=== PATIENT | female | born 1980 | race Two or more races ===

== ENCOUNTER → 2021-01-06 | Outpatient (CLI) | payer BC ==
[2014-07-12 11:45] VITALS: BP 111/64
[~2021-01-06] MED LIST: ACET1TAB33 PO; BIRTH CONTROL; CLOT15CR5 TP; HYDR-3423 PO; LISI-517 PO; MAGN296S68 PO; METF500T16 PO; NA P133E2 RC; NAPR500T8 PO; PHEN15CA2 PO; TOPI25TA52 PO
== END ==
LOC: LAB 10:15
PROVIDERS: ATTEND Podiatrist
DX: Z01.812 Encounter for preprocedural laboratory examination (principal); Z20.822 Contact with and (suspected) exposure to COVID-19
CPT/HCPCS: U0003; U0005

== ENCOUNTER 2021-01-08 09:50 | Day surgery (SDC) | payer BC ==
[~2021-01-08] VITALS: Ht 162.6 cm; Wt 81.0 kg
[~2021-01-08 09:50] MED LIST changes: -ACET1TAB33 PO; +HYDROmorphone 2 MG/ML VIAL IVP PRN; +IV RINGERS,LACTATED 1000ML 1,000 ML IV SCH; +MORPHINE SULFATE 2 MG/ML INJ. IVP PRN; +PROCHLORPERAZINE 10 MG/2 ML VIAL. IVP PRN; +fentaNYL PF VIAL 100 MCG/2 ML VIAL IVP PRN
[2021-01-08 10:30] VITALS: BP 156/86
--- NOTE | 2021-01-08 10:30 | PDOC1 ---
History and Physical Date of Admission Date of Admission DATE: 01/08/21 TIME: 10:29 Identification/Chief Complaint Chief Complaint Left 3rd toe mass Source Source: Chart review, Patient History of Present Illness History of Present Illness Ms Calero is a 40yo F w/ PMHx DM2 with neuropathy, HTN, chronic back pain who comes to [facility] for left 3rd digit amputation for chronic pain and bone mass. Has had toe problems at this location over a year. 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 She uses topical antifungal cream and has onychomycosis of bilateral great toes. Takes metformin for DM2 and lisinopril for HTN, sees Dr. Yoon for primary care and has excellent diabetic and BP control. She has only had 1 prior surgery, abodominal hysterectomy with salpingectomy in 2013 with no adverse effects, no prior problems with anesthesia, no blood transfusions. No recent travel or sick contacts. Rapid COVID 19 negative. Past Medical History Cardiovascular: HTN Endocrine: Diabetes Past Surgical History Past Surgical History: Hysterectomy Family History Family History Father diagnosed with diabetes. Mother diagnosed with hypertension. Maternal grandmother cancer and diagnosed with diabetes and hypertension. Three brothers and one sister, two healthy. Two sons and two daughters all healthy. Family History: Diabetes (Father), Hypertension (Mother) Family History: Grandparents (Maternal grandmother - cancer, DM2, HTN), Other (3 brothers, 1 sister. 2 sons, 2 daughters) Social History Smoke: No ALCOHOL: none Drugs: None Current Medications Current Medications Current Medications Fentanyl Citrate (Fentanyl 2ml Vial) 25 mcg PRN Q5MIN PRN IVP MILD PAIN 1-3; Start 01/08/21 at 06:00; Stop 01/09/21 at 05:59 Fentanyl Citrate (Fentanyl 2ml Vial) 50 mcg PRN Q5MIN PRN IVP MODERATE PAIN 4- 6; Start 01/08/21 at 06:00; Stop 01/09/21 at 05:59 Morphine Sulfate (Morphine Sulfate) 1 mg PRN Q10MIN PRN IVP SEVERE PAIN 7-10; Start 01/08/21 at 06:00; Stop 01/09/21 at 05:59 Ringer's Solution 1,000 ml @ 30 mls/hr Q24H IV ; Start 01/08/21 at 06:00; Stop 01/08/21 at 17:59 Hydromorphone HCl (Dilaudid) 0.5 mg PRN Q10MIN PRN IVP SEVERE PAIN 7-10, 2nd CHOICE; Start 01/08/21 at 06:00; Stop 01/09/21 at 05:59 Prochlorperazine Edisylate (Compazine) 5 mg PACU PRN PRN IVP NAUSEA, MRX1; St art 01/08/21 at 06:00; Stop 01/09/21 at 05:59 Active Scripts Active Reported Phentermine Hcl 15 Mg Capsule 15 Mg PO DAILY Topamax (Topiramate) 25 Mg Tablet 25 Mg PO BID Clotrimazole-Betamethasone Crm (Clotrimazole/Betamethasone Dip) 15 Gm Cream..g. 15 Gm TP BID Lisinopril 5 Mg Tablet 5 Mg PO DAILY Metformin Hcl 500 Mg Tablet 500 Mg PO DAILYAC Allergies Allergies: Coded Allergies: No Known Drug Allergies (Unverified , 01/02/21) ROS General: No: Chills, Night Sweats, Fatigue, Malaise, Appetite, Other PSYCHOLOGICAL ROS: No: Anxiety, Behavioral Disorder, Concentration difficultie, Decreased libido, Depression, Disorientation, Hallucinations, Hostility, Irritablity, Memory difficulties, Mood Swings, Obsessive thoughts, Physical abuse, Sexual abuse, Sleep disturbances, Suicidal ideation, Other Eyes: No Blurry vision, No Decreased vision, No Double vision, No Dry eyes, No Excessive tearing, No Eye Pain, No Itchy Eyes, No Loss of vision, No Photophobia, No Scotomata, No Uses contacts, No Uses glasses, No Other HEENT: No: Heacaches, Visual Changes, Hearing change, Nasal congestion, Nasal discharge, Oral lesions, Sinus pain, Sore Throat, Epistaxis, Sneezing, Snoring, Tinnitus, Vertigo, Vocal changes, Other ALLERGY AND IMMUNOLOGY: No: Hives, Insect Bite Sensitivity, Itchy/Watery Eyes, Nasal Congestion, Post Nasal Drip, Seasonal Allergies, Other Hematological and Lymphatic: No: Bleeding Problems, Blood Clots, Blood Transfusions, Brusing, Night Sweats, Pallor, Swollen Lymph Nodes, Other ENDOCRINE: No: Breast Changes, Galactorrhea, Hair Pattern Changes, Hot Flashes, Malaise/lethargy, Mood Swings, Palpitations, Polydipsia/polyuria, Skin Changes, Temperature Intolerance, Unexpected Weight Changes, Other Breast: No New/Changing Breast Lumps, No Nipple changes, No Nipple discharge, No Other Respiratory: No: Cough, Hemoptysis, Orthopnea, Pleuritic Pain, Shortness of breath, SOB with excertion, Sputum Changes, Stridor, Tachypnea, Wheezing, Other Cardiovascular: No Chest Pain, No Palpitations, No Orthopnea, No Paroxysmal Noc. Dyspnea, No Edema, No Lt Headedness, No Other Gastrointestinal: No Nausea, No Vomiting, No Abdominal Pain, No Diarrhea, No Constipation, No Melena, No Hematochezia, No Other Genitourinary: No Dysuria, No Frequency, No Incontinence, No Hematuria, No Retention, No Discharge, No Urgency, No Pain, No Flank Pain, No Other, No , No , No , No , No , No , No Musculoskeletal: Yes Gait Disturbance, Yes Joint Pain; No Joint Stiffness, No Joint Swelling, No Muscle Pain, No Muscular Weakness, No Pain In:, No Swelling In:, No Other Neurological: No Behavorial Changes, No Bowel/Bladder ControlChng, No Confusion, No Dizziness, No Gait Disturbance, No Headaches, No Impaired Coord/balance, No Memory Loss, No Numbness/Tingling, No Seizures, No Speech Problems, No Tremors, No Visual Changes, No Weakness, No Other Skin: No Dry Skin, No Eczema, No Hair Changes, No Lumps, No Mole Changes, No Mottling, No Nail Changes, No Pruritus, No Rash, No Skin Lesion Changes, No Other, No Acne Physical Exam General: Alert, Oriented X3, Cooperative, No acute distress HEENT: Atraumatic, PERRLA, EOMI, Mucous membr. moist/pink Lungs: Clear to auscultation, Normal air movement Heart: S1S2, RRR, no thrills, no rubs, no gallops, no murmurs Breasts: Nipples normal Abdomen: Normal bowel sounds, Soft, No tenderness, No hepatosplenomegaly, No masses Rectal Exam: not examined Skin: No rashes, No breakdown, Other (bilateral great toe onychomycosis, left 3rd toe mass at DIP) Neuro: Normal gait, Normal speech, Strength at 5/5 X4 ext, Normal tone, Sensation intact, Cranial nerves 3-12 NL, Reflexes 2+ Psych/Mental Status: Mental status NL, Mood NL VTE Prophylaxis Ordered VTE Prophylaxis Devices: Yes VTE Pharmacological Prophylaxi: No Assessment/Plan Assessment/Plan A/P: Left 3rd toe mass - could be osteochondroma vs exostosis vs other deformity DM2 - A1c 6.8 1 month ago, takes metformin HTN - on lisinopril Onychomycosis - bilateral great toes Overweight - counseled on lifestyle modification FEN - NPO PPX - SCDs FULL CODE Dispo - no further testing prior to planned outpatient surgery, low risk for low risk surgery for questions Justifications for Admission Other Justification DINESH WILLIS MD Jan 08, 2021 10:30
[2021-01-08] MEDS ORDERED: PHENYLEPHRINE 10 MG/ML VIAL. ONE (10:35)
[2021-01-08] MEDS ORDERED: PROPOFOL 10 MG/ML (20ML) VIAL. IV ONE (10:35)
[2021-01-08] MEDS ORDERED: BUPIVACAINE MPF 0.5% 30 ML VIAL. ONE (10:36)
[2021-01-08] MEDS ORDERED: fentaNYL PF VIAL 100 MCG/2 ML VIAL ONE (10:36)
[2021-01-08] MEDS ORDERED: DEXAMETHASONE SOD PHOS 4 MG/ML VIAL ONE (10:36)
[2021-01-08] MEDS ORDERED: LIDOCAINE 1% Multi-Dose 20 ML VIAL. ONE (10:36)
[2021-01-08] MEDS ORDERED: ONDANSETRON PF 4 MG/2 ML VIAL. ONE (10:36)
[2021-01-08] MEDS ORDERED: LIDOCAINE 2% PF 5 ML VIAL. ONE (10:36)
[2021-01-08] MEDS ORDERED: POVIDONE-IODINE 10% TOPICAL OINTMENT 28GM TUBE. TP ONE (10:37)
[2021-01-08] MEDS ORDERED: MIDAZOLAM HCL/PF 2 MG/2 ML VIAL. ONE (10:39)
[2021-01-08] MEDS ORDERED: INSULIN LISPRO 100 UNIT/ML 3ML VIAL for OP,RR ONLY. SQ PRN (11:00)
[2021-01-08 11:42] LABS: CALCIUM 8.9 mg/dL (8.5-10.1); CREATININE 0.6 mg/dL (0.6-1.0); GFR 110.2; POTASSIUM 3.9 mmol/L (3.5-5.1)
[2021-01-08 11:45] LABS: BASO # 0.1 x10^3/uL (0.0-0.2); BASO % 1 % (0-3); EOS # 0.2 x10^3/uL (0.0-0.7); EOS % 3 % (0-3); HEMATOCRIT 38.7 % (36.0-47.0); HEMOGLOBIN 13.2 g/dL (12.0-15.5); LYMPH # 2.7 x10^3/uL (1.0-4.8); LYMPH % 41 % (24-48); MEAN CORPUSCULAR HEMOGLOBIN 29 pg (25-35); MEAN CORPUSCULAR HGB CONC 34 g/dL (31-37); MEAN CORPUSCULAR VOLUME 86 fL (79-100); MONO # 0.5 x10^3/uL (0.0-1.1); MONO % 8 % (0-9); NEUT # 3.1 x10^3/uL (1.8-7.7); NEUT % 47 % (31-73); PLATELET COUNT 354 x10^3/uL (140-400); RED BLOOD COUNT 4.51 x10^6/uL (3.50-5.40); RED CELL DISTRIBUTION WIDTH 13.4 % (11.5-14.5); WHITE BLOOD COUNT 6.6 x10^3/uL (4.0-11.0)
[2021-01-08 11:47] LABS: ALBUMIN 3.3 g/dL (3.4-5.0); ALBUMIN/GLOBULIN RATIO 0.9 (1.0-1.7); TOTAL BILIRUBIN 0.2 mg/dL (0.2-1.0); TOTAL PROTEIN 6.9 g/dL (6.4-8.2)
[2021-01-08 11:55] LABS: PROTHROMBIN TIME PATIENT 12.1 SEC (11.7-14.0)
--- NOTE | 2021-01-08 12:47 | DISCH ---
DISCHARGE INSTRUCTIONS Condition on Discharge Condition on Discharge: Stable Activity After Discharge Activity Instructions for Disc: Activity as tolerated, Other, see below (Mi nimal weight bearing in surgical shoe to the left foot till followup in clinic) Bathing Instructions: Shower-keep dressing dry Lifting Instructions after Dis: No heavy lifting, No pulling or pushing, Do not lift >10 pounds Weight Bearing Status after Di: Full weight bearing, Other, see below (Minimal heel weight bearing, left foot till follow-up in clinic.) Diet after Discharge Diet after Discharge: Diabetic No Calorie Level Wound Incision Care Wound/Incision Care: Keep wound/cast CDI Checks after Discharge Checks after discharge: Check blood sugar, ac/hs, Check your Temp as needed Contacting the DRCassie after DC Call your doctor for: Fever greater than 100 Follow-Up Follow up with: Dr. Pope on Tuesday01/13/21 at the Clinic ([phone]) JUAN RAMON POPE DPM Jan 08, 2021 12:47
[2021-01-08] MEDS ORDERED: ACET1TAB33 PO (12:52)
--- NOTE | 2021-01-08 13:06 | PDOC4 ---
OPERATIVE NOTE: Post operative Note: Date of surgery: 01/08/21 Surgeon: Dr. Juan Ramon Pope DPM Pre-operative diagnosis: Benign lesion of the distal phalanx of the left foot 3rd digit Post-operative diagnosis: Same as above Procedure performed: Partial amputation of the left foot 3rd digit with biopsy. Hemostasis: Left ankle tourniquet set at 250mmHg for 21 mins Blood loss: Minimal (about 2ml) Materials used: 3-0 Nylon Complications: None Patient tolerated the procedure and anesthesia well. Patient was transported to the PACU with vital signs stable and CFT WNL to the left foot. Patient to followup in Podiatry clinic with Dr. Pope in 5-7 days. Patient to be minimal heel weight bear in the surgical shoe to the left foot till followup in clinic. Patient to call clinic if any issues prior to her appointment. Dr. Juan Ramon Pope [phone] JUAN RAMON POPE DPM Jan 08, 2021 13:06
[2021-01-08 13:15] VITALS: BP 140/85
--- NOTE | 2021-01-08 13:28 | RAD ---
XR FOOT_LEFT 3 VIEWS 01/08/2021 1:21 PM Indication: Reason: Post op / Spl. Instructions: Patient is in PACU / History: S/p Partial 3rd digit amputation, left foot Comparison: None Technique: 3 views of the left foot Findings: There is postsurgical changes of partial third digit distal amputation, approximately half of the distal phalange. There is a tiny focus of subcutaneous air. There is surrounding bandages. In the remaining foot, there is no fracture or dislocation. No osseous reabsorption. The joint spaces ar e well-maintained. There are no radiopaque foreign objects present. Impression: Postsurgical changes of amputation of the distal half of the third digit distal phalange. Electronically signed by: Ncik Hernandez (01/08/2021 1:26 PM) [id number]
--- NOTE | 2021-01-08 14:29 | OP ---
DATE OF SURGERY: 01/08/2021 SURGEON: Orlando Singh DPM. PREOPERATIVE DIAGNOSIS: Benign neoplasm of short bone of left foot third digit. POSTOPERATIVE DIAGNOSIS: Benign neoplasm of short bone of left foot third digit. PROCEDURE PERFORMED: Partial amputation of the left foot third digit with biopsy. ANESTHESIA: LMA with local anesthetic, 7 mL of 1:1 mixture of 0.5% Marcaine plain and 1% lidocaine plain at the third ray, left foot. MATERIALS USED: 3-0 nylon. REASON FOR PROCEDURE: The patient was seen in clinic for a bony mass at the nail bed of left third digit. The patient had discomfort at the left foot third digit due to that and the patient had an MRI done, which showed a benign lesion. The patient decided that she would like it removed and the patient got a preoperative risk stratification from PCP and was agreeable to the procedure. The procedure, the postoperative course, the risks and complications were discussed in detail with the patient. The patient understood and elected to proceed with the surgery. The consent was signed and placed in the chart. DESCRIPTION OF PROCEDURE: The patient was brought to the operative room and placed on the operating room table in a supine position. Next, LMA anesthesia was performed by the Anesthesia service and a local block was performed using 7 mL of 1:1 mixture of 0.5% Marcaine plain and 1% lidocaine plain. Next, the foot was prepped and draped in the usual aseptic technique. The left ankle tourniquet was inflated to 250 mmHg and the attention was drawn to the left third digit where a vertical fish mouth incision was performed with a #15 blade to the bone. Next, the distal phalanx and partial middle phalanx was resected out carefully with care being taken to protect the neurovascular tissue. Once the bone was resected, the surgical site was irrigated copiously with sterile saline solution. The resected distal tip of the third digit and the bone were sent to pathology lab in formalin. Next, the surgical site was sutured together using 3-0 nylon in a simple suture technique. The tourniquet was deflated with good CFT noted to the left foot at the surgical site. The surgical site was bandaged with Betadine, Adaptic, 4 x 4's, Andrea roll and Chuy wrap. The patient tolerated the procedure and anesthesia well. The patient was transported to PACU in stable condition. The tourniquet was deflated after 21 minutes. The patient is to follow up in clinic in 5-7 days. The patient to call sooner if there are any issues. The patient to be minimum with weightbearing to the left foot with bandage clean, dry and intact until followup. The patient understands and agrees. ENE/BARI/RAMON DR: ENE/cole TID: [id number]
--- NOTE | 2021-01-13 16:07 | PATHOLOGY ---
[facility] Accession Number: [id number] . 01 Material submitted: . toe - LEFT 3RD TOE. Modifiers: left, third . 01 Clinical history: . TOE AMPUTATION/TOE MASS . 02 Diagnosis: Distal toe, partial amputation left foot third digit: - Focally invaginated and verrucoid squamous keratosis with marked hyperkeratosis, and focal ossification within adjacent soft tissues. (JPM:brian; 01/13/2021) S 01/13/2021 1554 Local . 02 Comment: There is no evidence of malignancy. (JPM:brian; 01/13/2021) . 02 Electronically signed: . Ned Quigley MD, Pathologist NPI- [id number] . 01 Gross description: . The specimen is received in formalin, labeled "Judith Calero, left third toe". Received is an irregular excision of skin with attached bone measuring 2.3 x 1.3 x 1.2 cm in greatest dimensions. The bone margin is jagged in appearance. The bone and soft tissue margins are inked black. The epidermal surface displays a poorly circumscribed, flat and verma-loyd lesion measuring 0.7 x 0.7 cm. The specimen is longitudinally bisected and entirely submitted in cassettes A1 and A2, following decalcification. (CAA; 01/09/2021) QAC/QAC 01/13/2021 1432 Local . 02 Pathologist provided ICD-10: L57.0, L85.8 . 02 CPT . 269265, [id number] Specimen Comment: A courtesy copy of this report has been sent to [phone] Specimen Comment: Report sent to Performed at: [address], [place], [place] [id number] MD Thang Dawson MD Phone: [phone] Performed at: [address] [id number] MD Ned Quigley MD Phone: [phone]
== END 2021-01-08 14:00 | disposition home or self-care (01) ==
LOC: SURG 09:50
PROVIDERS: ATTEND Podiatrist
DX: D16.32 Benign neoplasm of short bones of left lower limb (principal); I10 Essential (primary) hypertension; E11.9 Type 2 diabetes mellitus without complications; Z79.84 Long term (current) use of oral hypoglycemic drugs; Z79.899 Other long term (current) drug therapy; Z98.890 Other specified postprocedural states
CPT/HCPCS: 28810; 36415; 73630; 80053; 82962; 85025; 85610; 85730; A4930; A6223; A6402; A6449; J1100; J2250; J2405; J2704; J3490; A4657; A6443; J2370; J3010